=== PATIENT | female | born 1990 | race Native Hawaiian/Other Pacific Islander ===

== ENCOUNTER 2020-02-04 14:03 | Emergency (ER) | payer OTHER ==
[~2020-02-04] VITALS: Ht 175.3 cm; Wt 73.5 kg
[2020-02-04 14:40] LABS: POTASSIUM 4.2 mmol/L (3.6-5.2); SODIUM 139 mmol/L (136-145)
[2020-02-04 14:41] LABS: PLATELET COUNT 315 K/uL (152-353)
[2020-02-04 17:03] VITALS: BP 112/71; TEMP 98.7
== END 2020-02-04 17:09 | disposition home or self-care (01) ==
LOC: ED 14:03
PROVIDERS: Emergency Medicine
DX: R07.89 Other chest pain (principal); M54.12 Radiculopathy, cervical region; X50.9XXA Other and unspecified overexertion or strenuous movements or postures, initial encounter; Y92.89 Other specified places as the place of occurrence of the external cause
CPT/HCPCS: 36415; 80053; 81000; 81025; 82550; 82553; 84484; 85027; 85379; 93005; 99284

== ENCOUNTER 2020-03-14 08:16 | Emergency (ER) | payer OTHER ==
[~2020-03-14] VITALS: Ht 175.3 cm; Wt 73.5 kg
[2020-03-14 09:48] LABS: PLATELET COUNT 292 K/uL (152-353)
[2020-03-14 12:52] VITALS: BP 121/59; TEMP 98.9
== END 2020-03-14 12:53 | disposition home or self-care (01) ==
LOC: ED 08:16
PROVIDERS: Emergency Medicine
DX: R10.84 Generalized abdominal pain (principal); K80.20 Calculus of gallbladder without cholecystitis without obstruction
CPT/HCPCS: 80053; 81000; 81025; 82150; 83690; 85027; 96374; 96375; 99284; J1885; J2405; Q9963

== ENCOUNTER 2021-04-04 11:45 | Emergency (ER) | payer OTHER ==
[~2021-04-04] VITALS: Ht 175.3 cm; Wt 68.0 kg
[2021-04-04 13:02] VITALS: TEMP 99
[2021-04-04 13:42] VITALS: BP 118/76
== END 2021-04-04 13:28 | disposition home or self-care (01) ==
LOC: ED 11:45
DX: J06.9 Acute upper respiratory infection, unspecified (principal); F17.210 Nicotine dependence, cigarettes, uncomplicated
CPT/HCPCS: 99283

== ENCOUNTER 2023-04-16 08:37 | Outpatient (CLI) | payer OTHER | END 2023-04-16 19:55 | disposition home or self-care (01) | LOC: MAMMO 08:37 | PROVIDERS: ATTEND Nurse Practitioner | DX: N64.4 Mastodynia (principal) | CPT/HCPCS: G0279 ==